=== PATIENT | male | born 1970 | race Caucasian/White ===

== ENCOUNTER 2016-08-19 20:31 | Observation (INO) | payer BC ==
[~2016-08-19] VITALS: Ht 179.1 cm; Wt 69.8 kg
[2016-08-19 21:57] LABS: HEMATOCRIT 42.4 % (38.0-50.0); MCH 28.6 PG (29.0-34.0); MCV 86.5 FL (86-99); MEAN PLAT.VOLUME 10.4 uM^3 (9.0-12.4); PLATELET COUNT 170 K/uL (156-360); RBC DIS.WIDTH-CV 12.8 % (11.8-14.6); RBC DIS.WIDTH-SD 40.4 % (39-53); WHITE BLOOD COUNT 10.4 K/uL (4.1-10.2)
[2016-08-19 22:10] LABS: CHLORIDE 108 mEq/L (99-109); POTASSIUM 3.8 mEq/L (3.7-5.4); SODIUM 140 mEq/L (136-147)
[2016-08-19 22:12] LABS: GLUCOSE 83 mg/dL (70-99)
[2016-08-19 22:13] LABS: ANION GAP 13 MEQ/L (2-14)
[2016-08-19 22:16] LABS: GFR ESTIMATE (CALCULATED) > 59 mL/min/; UREA NITROGEN (BUN) 14 mg/dL (9-23)
[2016-08-19 22:19] LABS: TROP-I INTERPRETATION NEGATIVE; TROPONIN-I < 0.01 ng/mL (0.0-0.30)
[2016-08-20 00:38] LABS: D-DIMER ELISA < 0.15 mg/L FEU (< 0.57); INTER. NORMALIZED RATIO 1.1; PROTHROMBIN TIME 11.4 (9.2-11.2); PTT 27.6 (25-32)
[2016-08-20 01:59] LABS: ADD MIUA? NO; BILIRUBIN NEGATIVE; BLOOD NEGATIVE; COLOR YELLOW ((YELLOW)); GLUCOSE (STRIP) NEGATIVE; KETONES 5; LEUKOCYTES NEGATIVE; NITRITE NEGATIVE; PROTEIN (STRIP) NEGATIVE; SPECIFIC GRAVITY 1.011 (1.000-1.030); UCUL ADDED? NO; UROBILINOGEN 0.2 MG/DL (0.2-1.0)
[2016-08-20 02:48] VITALS: BP 107/64
[2016-08-20 06:00] LABS: TROP-I INTERPRETATION NEGATIVE; TROPONIN-I < 0.01 ng/mL (0.0-0.30)
[2016-08-20 08:11] VITALS: BP 107/63
[2016-08-20 12:05] LABS: TROP-I INTERPRETATION NEGATIVE; TROPONIN-I < 0.01 ng/mL (0.0-0.30)
== END 2016-08-20 12:09 | disposition home or self-care (01) ==
LOC: EDBD 20:31 → EME 20:31 → EDOF 08-20 01:36 → 5WEST 08-20 01:36
PROVIDERS: Emergency Medicine; Hospitalist; Nurse Practitioner Family
DX: R55 Syncope and collapse (principal); E86.0 Dehydration; R11.2 Nausea with vomiting, unspecified; R42 Dizziness and giddiness; Z87.891 Personal history of nicotine dependence; R51 Headache
CPT/HCPCS: 70140; 70551; 71010; 80048; 81003; 82607; 82746; 83605; 83880; 84443; 84484; 85027; 85379; 85610; 85730; 93005; 99281; 99285; G0378; J2405; J7030; J7120